=== PATIENT | female | born 1960 | race Caucasian/White ===

== ENCOUNTER 2018-07-27 11:05 | Emergency (ER) | payer SELFPAY ==
[2018-07-27 11:28] VITALS: BP 132/82
--- NOTE | 2018-07-27 11:29 | Emergency Department Report ---
Blank Doc - Documentation Documentation: This is a 58-year-old female that presents with acute on chronic tingling and numbness sensation to right upper ext. Stated has history of same symptoms to left arm and is resolved with tramadol. Denies any injuries. Denies any headache, facial drooping or slurred speech. Patient stated has history of neck pain. Exam: neuro exam normal. normal strength to bilateral arms. This initial assessment/diagnostic orders/clinical plan/treatment(s) is/are subject to change based on patient's health status, clinical progression and re- assessment by fellow clinical providers in the ED. Further treatment and workup at subsequent clinical providers discretion. Patient/guardians urged not to elope from the ED as their condition may be serious if not clinically assessed and managed. Initial orders include: 1- Patient sent to [facility] for further evaluation and treatment 2- cervical spine xray
--- NOTE | 2018-07-27 12:03 | XRay Report ---
CERVICAL SPINE, 3 views: History: Neck pain. Findings: The vertebral bodies, disk spaces, posterior elements and prevertebral soft tissues are unremarkable. The dens is intact. Moderate degenerative disc disease is identified at C5-6. The remaining disc levels and facet joints are unremarkable. No acute fracture or malalignment is identified. Impression: Moderate degenerative disc disease at C5-6. No evidence for acute injury to the cervical spine.
--- NOTE | 2018-07-27 13:39 | Emergency Department Report ---
ED Extremity Problem HPI - General Chief complaint: Extremity Problem,Nontraumatic Stated complaint: ARMS NUMBNESS/HAND PAIN Time Seen by Provider: 07/27/18 11:25 Source: patient Mode of arrival: Ambulatory Limitations: No Limitations - History of Present Illness Initial comments: 58-year-old female presents to ED with pain and tingling sensation to right arm 2 days. States pain in right hand has been so bad at night that she has been unable to sleep. Similar symptoms in the past with left arm that was relieved with tramadol. Patient reports that she has been having some neck pain that comes and goes. She denies injury. Denies weakness in the right arm. Denies swelling. MD Complaint: extremity pain -: days(s) (2) Location: right, upper extremity History of Same: Yes Radiation: distal Severity scale (0 -10): 8 Quality: aching, sharp Consistency: intermittent Improves with: nothing Worsens with: nothing Associated Symptoms: denies: chest pain, shortness of breath, fever - Related Data Home Medications Medication Instructions Recorded Confirmed Last Taken Omeprazole 1 cap PO DAILY 12/22/13 12/25/13 12/24/13 Propranolol HCl 1 tab PO BID 12/22/13 12/25/13 12/25/13 traMADol [Ultram 50 MG tab] 1 tab PO PRN 12/22/13 12/25/13 12/24/13 Previous Rx's Medication Instructions Recorded Last Taken Type Methocarbamol [Robaxin-750] 750 mg PO Q6HR PRN #20 tablet 07/27/18 Unknown Rx Naproxen [Naprosyn] 500 mg PO BID #20 tablet 07/27/18 Unknown Rx Allergies Allergy/AdvReac Type Severity Reaction Status Date / Time Sulfa (Sulfonamide Allergy Rash Verified 07/27/18 11:27 Antibiotics) ED Review of Systems ROS: Stated complaint: ARMS NUMBNESS/HAND PAIN Other details as noted in HPI Comment: All other systems reviewed and negative Constitutional: denies: chills, fever Cardiovascular: denies: chest pain Gastrointestinal: denies: nausea, vomiting Musculoskeletal: as per HPI Neurological: paresthesias. denies: headache, weakness ED Past Medical Hx - Past Medical History Hx Hypertension: Yes Hx GERD: Yes Hx Seizures: (Hydrocephalus - s/p [employer] shunts x 3) Hx Asthma: No Hx COPD: No - Surgical History Hx Open Heart Surgery: Yes ([employer] SHUNT PLACEMENT 1986;;2011) Hx Cholecystectomy: Yes (2011) - Social History Smoking Status: Never Smoker Substance Use Type: None - Medications Home Medications: Home Medications Medication Instructions Recorded Confirmed Last Taken Type Omeprazole 1 cap PO DAILY 12/22/13 12/25/13 12/24/13 History Propranolol HCl 1 tab PO BID 12/22/13 12/25/13 12/25/13 History traMADol [Ultram 50 MG tab] 1 tab PO PRN 12/22/13 12/25/13 12/24/13 History Methocarbamol [Robaxin-750] 750 mg PO Q6HR PRN #20 tablet 07/27/18 Unknown Rx Naproxen [Naprosyn] 500 mg PO BID #20 tablet 07/27/18 Unknown Rx ED Physical Exam - General Limitations: No Limitations General appearance: alert, in no apparent distress - Head Head exam: Present: atraumatic, normocephalic - Eye Eye exam: Present: normal appearance - ENT ENT exam: Present: mucous membranes moist - Neck Neck exam: Present: normal inspection. Absent: tenderness - Respiratory Respiratory exam: Present: normal lung sounds bilaterally. Absent: respiratory distress - Cardiovascular Cardiovascular Exam: Present: regular rate, normal rhythm - GI/Abdominal GI/Abdominal exam: Absent: distended - Extremities Exam Extremities exam: Present: normal inspection, full ROM - Neurological Exam Neurological exam: Present: alert, oriented X3, CN II-XII intact. Absent: motor sensory deficit - Psychiatric Psychiatric exam: Present: normal affect, normal mood - Skin Skin exam: Present: warm, dry, intact, normal color ED Course Vital Signs 07/27/18 11:27 Temperature 98.3 F Pulse Rate 77 Respiratory 18 Rate Blood Pressure 132/82 O2 Sat by Pulse 98 Oximetry ED Medical Decision Making - Radiology Data Radiology results: report reviewed, image reviewed - Medical Decision Making - c-spine films show DDD - likely radiculopathy, reports same sx on left side previously - no neuro deficits, strength/ sensation intact - ortho follow-up - return precautions given - Differential Diagnosis neuropathy, radiculopathy, DDD Critical care attestation.: If time is entered above; I have spent that time in minutes in the direct care of this critically ill patient, excluding procedure time. ED Disposition Clinical Impression: Cervical radiculopathy, Degenerative disc disease, cervical Disposition: DC-01 TO HOME OR SELFCARE Is pt being admited?: No Condition: Stable Instructions: Cervical Radiculopathy (ED) Prescriptions: Naproxen [Naprosyn] 500 mg PO BID #20 tablet Methocarbamol [Robaxin-750] 750 mg PO Q6HR PRN #20 tablet PRN Reason: Spasms Referrals: PRIMARY CARE, [Primary Care Provider] - 3-5 Days ALEXANDRA LINDQUIST MD [Staff Physician] - 3-5 Days Print Language: PERUVIAN
== END 2018-07-27 14:00 | disposition home or self-care (01) ==
LOC: ED 11:05
DX: M50.10 Cervical disc disorder with radiculopathy, unspecified cervical region (principal); I10 Essential (primary) hypertension; K21.9 Gastro-esophageal reflux disease without esophagitis; Z90.49 Acquired absence of other specified parts of digestive tract; Z79.899 Other long term (current) drug therapy; Z88.2 Allergy status to sulfonamides
CPT/HCPCS: 72040; 99283